=== PATIENT | female | born 2000 | race Caucasian/White ===

== ENCOUNTER → 2018-09-01 | Outpatient (CLI) | payer OTHER ==
--- NOTE | 2018-09-01 15:35 | RAD ---
PELVIS W/TV History: Low pelvic pain Comparison: None. Findings: Multiple transabdominal sonographic images of the pelvis are submitted. Uterus measured 7.6 x 2.8 x 5.2 cm. Left ovary measured 5 x 2.5 x 2.9 cm. Right ovary measured 5 x 2.5 x 2.9 cm. There is normal low resistance vascularity of the ovaries bilaterally. Transvaginal ultrasound: Multiple transvaginal sonographic images of the pelvis are submitted. There is trace fluid in the cervical canal. There is a small hypoechoic lesion within normal echoes in the lower uterine segment about 0.3 cm greatest dimension not associated with internal vascularity on color Doppler imaging. Endometrium is within normal limits at 0.2 cm in greatest thickness. There is normal low resistance vascularity of the bilateral ovaries. There are few small follicles of the ovaries. No significant free fluid is demonstrated. Impression: 1. There is a trace quantity of nonspecific fluid in the cervical canal. There is a small complex cyst of the lower uterine segment. No other significant abnormality is demonstrated. Electronically signed by: Kang Brock MD (09/01/2018 3:32 PM) [id number]
== END | disposition home or self-care (01) ==
LOC: US 14:45
PROVIDERS: ATTEND Family Medicine
DX: N83.8 Other noninflammatory disorders of ovary, fallopian tube and broad ligament (principal)
CPT/HCPCS: 76830; 76856